=== PATIENT | male | born 1975 | race Caucasian/White ===

== ENCOUNTER 2017-05-23 07:08 | Emergency (ER) | payer MEDICAID ==
[~2017-05-23] VITALS: Ht 175.3 cm; Wt 77.0 kg
[2017-05-23] MEDS ORDERED: ONDANSETRON HCL 4MG/2ML VIAL IV STA (07:17)
[2017-05-23] MEDS ORDERED: ASPIRIN 81MG TABLET PO STA (07:17)
[2017-05-23] MEDS ORDERED: KETOROLAC 30MG/ML VIAL IV STA (07:17)
[2017-05-23] MEDS ORDERED: NITROGLYCERIN OINT 1GM/INCH UDPKT TD STA (07:17)
[2017-05-23 07:31] LABS: BASOPHILS % 0.5 % (0.0-2.0); EOSINOPHILS % 2.4 % (0.0-5.0); HEMATOCRIT. 42.3 % (42.0-52.0); HEMOGLOBIN. 14.3 g/dL (14.0-18.0); LYMPHOCYTES % 18.1 % (20.0-50.0); MEAN CORPUSCULAR HEMOGLOBIN 29.8 pg (28.0-32.0); MEAN CORPUSCULAR VOLUME 87.8 fL (80.0-94.0); MONOCYTES % 7.1 % (2.0-8.0); NEUTROPHILS % 71.9 % (40.0-76.0); PLATELET 276 x1000/uL (130-400); RED BLOOD CELL COUNT 4.82 mill/uL (4.7-6.1); RED CELL DISTRIBUTION WIDTH 13.7 % (11.6-14.6)
[2017-05-23 07:38] LABS: PARTIAL THROMBOPLASTIN TIME 26.4 sec (24.0-34.0); PROTHROMBIN TIME 10.5 sec
[2017-05-23 07:48] LABS: CARBON DIOXIDE 31 mEq/L (21-32); CHLORIDE 104 mEq/L (98-107); CREATINE KINASE 131 IU/L (39-308); CREATINE KINASE MB FRACTION 2.4 ng/mL (0.5-3.6); TROPONIN I < 0.02 ng/mL (0.00-0.04)
[2017-05-23 09:02] LABS: *AMPHETAMINES SCREEN URINE NEGATIVE (NEGATIVE); *BARBITURATES SCREEN URINE NEGATIVE (NEGATIVE); *BENZODIAZEPINES SCREEN URINE NEGATIVE (NEGATIVE); *COCAINE SCREEN URINE PRESUMTIVE POSITIVE (NEGATIVE); CANNABINOID URINE SCREEN NEGATIVE (NEGATIVE); METHADONE URINE SCREEN NEGATIVE (NEGATIVE); OPIATES URINE SCREEN NEGATIVE (NEGATIVE); PHENCYCLIDINE URINE SCREEN NEGATIVE (NEGATIVE)
[2017-05-23 09:15] VITALS: BP 122/84
== END 2017-05-23 10:18 | disposition home or self-care (01) ==
LOC: ER 07:09
DX: R07.9 Chest pain, unspecified (principal); I10 Essential (primary) hypertension; F14.10 Cocaine abuse, uncomplicated
CPT/HCPCS: 36415; 71010; 80053; 80305; 82550; 82553; 83690; 83880; 84484; 85025; 85610; 85730; 93005; 96374; 96375; 99285; J1885; J2405

== ENCOUNTER 2017-06-20 06:49 | Emergency (ER) | payer MEDICAID ==
[~2017-06-20] VITALS: Ht 175.3 cm; Wt 170.0 kg
[2017-06-20] MEDS ORDERED: METOCLOPRAMIDE HCL 5MG TABLET PO ONE (08:00)
[2017-06-20] MEDS ORDERED: KETOROLAC 60MG/2ML VIAL IM ONE (08:00)
[2017-06-20 08:56] VITALS: BP 135/87
== END 2017-06-20 08:59 | disposition home or self-care (01) ==
LOC: ER 07:03
DX: R51 Headache (principal); F17.200 Nicotine dependence, unspecified, uncomplicated; F11.10 Opioid abuse, uncomplicated
CPT/HCPCS: 96372; 99283; J1885; J8597

== ENCOUNTER 2017-12-03 05:53 | Emergency (ER) | payer MEDICAID ==
[~2017-12-03] VITALS: Ht 177.8 cm; Wt 77.0 kg
[2017-12-03 07:54] LABS: CHLORIDE 105 mEq/L (98-107)
[2017-12-03 07:58] LABS: BASOPHILS % 0.5 % (0.0-2.0); EOSINOPHILS % 3.3 % (0.0-5.0); HEMATOCRIT. 47.1 % (42.0-52.0); HEMOGLOBIN. 15.7 g/dL (14.0-18.0); LYMPHOCYTES % 14.1 % (20.0-50.0); MEAN CORPUSCULAR HEMOGLOBIN 30.7 pg (28.0-32.0); MEAN CORPUSCULAR VOLUME 92.1 fL (80.0-94.0); MEAN PLATELET VOLUME 7.1 fl (7.4-10.4); NEUTROPHILS % 76.1 % (40.0-76.0); PLATELET 270 x1000/uL (130-400); RED BLOOD CELL COUNT 5.11 mill/uL (4.7-6.1)
[2017-12-03 08:01] LABS: AMMONIA 29 uMol/L (<32)
[2017-12-03 08:04] LABS: CARBON DIOXIDE 29 mEq/L (21-32); CREATINE KINASE 267 IU/L (39-308); ETHANOL BLOOD 85 mg/dL
[2017-12-03 08:06] LABS: CLARITY URINE CLEAR (CLEAR); COLOR URINE YELLOW (YELLOW); KETONES URINE NEGATIVE (NEGATIVE); LEUKOCYTE ESTERASE URINE TRACE (NEGATIVE); NITRITE URINE NEGATIVE (NEGATIVE); OCCULT BLOOD URINE NEGATIVE (NEGATIVE); PROTEIN URINE NEGATIVE (NEGATIVE); UROBILINOGEN URINE 0.2 E.U./dL (0.2-1.0)
[2017-12-03 08:35] LABS: *AMPHETAMINES SCREEN URINE NEGATIVE (NEGATIVE); *BARBITURATES SCREEN URINE NEGATIVE (NEGATIVE); *BENZODIAZEPINES SCREEN URINE PRESUMTIVE POSITIVE (NEGATIVE); *COCAINE SCREEN URINE PRESUMTIVE POSITIVE (NEGATIVE); CANNABINOID URINE SCREEN NEGATIVE (NEGATIVE); METHADONE URINE SCREEN NEGATIVE (NEGATIVE); OPIATES URINE SCREEN NEGATIVE (NEGATIVE)
[2017-12-03 08:37] LABS: PHENCYCLIDINE URINE SCREEN NEGATIVE (NEGATIVE)
[2017-12-03 09:42] VITALS: BP 135/66
== END 2017-12-03 09:44 | disposition home or self-care (01) ==
LOC: ER 05:53
DX: G40.909 Epilepsy, unspecified, not intractable, without status epilepticus (principal); F14.10 Cocaine abuse, uncomplicated
CPT/HCPCS: 36415; 70450; 80053; 80305; 81001; 82140; 82550; 85025; 85610; 99285; G0482